=== PATIENT | female | born 1970 | race Two or more races ===

== ENCOUNTER 2022-01-16 18:45 | Emergency (ER) | payer BC, OTHER ==
[~2022-01-16] VITALS: Ht 162.6 cm; Wt 72.6 kg
[2022-01-16 20:22] LABS: White Blood Cell 7.3 10^3/uL (4.4-10.8)
[2022-01-16 20:35] LABS: Hematocrit 33.6 % (36.0-46.0); Hemoglobin 11.1 g/dL (12.2-16.2); Mean Corpuscular Hemoglobin 19.4 pg (28.0-32.0); Mean Corpuscular Hgb Conc. 33.2 g/dL (32.0-36.0); Mean Corpuscular Volume 58.4 fL (80.0-100.0); Red Blood Cells 5.75 10^6/uL (4.0-5.20); Red Cell Distribution Width 17.3 % (11.8-14.3)
[2022-01-16 20:42] LABS: Basophils % (manual) 0 (0.0-2.0); Blast Cells 0; Myelocytes % 0; Promyelocytes % 0; Reactive Lymphocytes 0
[2022-01-16 20:45] LABS: Albumin 3.5 g/dL (3.4-5.0); BUN/Creatinine Ratio 16.4; Calcium 8.8 mg/dL (8.5-10.1); Potassium 3.9 mmol/L (3.5-5.1)
[2022-01-16 20:48] LABS: Bilirubin, Total 0.4 mg/dL (0.2-1.0); Total Protein 7.6 g/dL (6.4-8.2)
[2022-01-16] MEDS ORDERED: AZIT1POW PO (22:18)
[2022-01-16 22:23] VITALS: BP 132/86
[2022-01-16 22:27] LABS: Band Neutrophils % (manual) 6; Eosinophils % (manual) 5 (0-7); Lymphocytes % (manual) 12 (10.0-50.0); Metamyelocytes % 1; Monocytes % (manual) 10 (0-12)
== END 2022-01-16 22:27 | disposition home or self-care (01) ==
LOC: ER 18:47
DX: J20.9 Acute bronchitis, unspecified (principal); I10 Essential (primary) hypertension; E78.5 Hyperlipidemia, unspecified
CPT/HCPCS: 36415; 71046; 80053; 84484; 85007; 85027; 93005